=== PATIENT | female | born 1930 | race Caucasian/White ===

== ENCOUNTER 2016-11-23 20:10 | Emergency (ER) | payer MEDICARE, BC ==
--- NOTE | ~2016-11-23 | CR181 ---
[facility] A Service of [facility] & [facility] RADIOLOGY TEXT RESULTS PATIENT: SHAYY LUONG LOCATION: [facility] : 32 UNIT #: [id number] AGE: [address]: Dario Lindqiust MD SEX: F ORDER DR: [id number] [facility] [address] [place], [place] [address] [id number] E MR#: [id number] Acc #: [id number] NAME: SHAYY LUONG. : 1930 SEX: F STUDY DATE/TIME: 11/23/2016 20:41 UNIT: [facility] ROOM: STUDY DESCRIPTION: CR Lumbar Spine 2 or 3 Views Attending Physician: Dario Lindquist M.D. Ordering Physician: Dario Lindquist M.D. Primary Care Physician: Phan Olmos M.D. MEDICAL IMAGING REPORT This report is preliminary unless electronic signature is present Lumbar spine, 3 views. HISTORY Low back pain today after fall today. FINDINGS 3 views of the lumbar spine demonstrate degenerative disc disease and moderately severe degenerative disc space narrowing at L4-5 and L5-S1. Mild right lower lumbar curve. Mild chronic compression of the superior margin of L5 vertebral body, and mild chronic compression of the superior endplate of T12, stable compared to 10/29/16. IMPRESSION 1. No acute finding. 2. Degenerative disc disease and moderately severe degenerative disc space narrowing at L4-5 and L5-S1. 3. Xdve-zl-ayiwqwqk chronic compression fractures of the superior margins of L5 and T12 vertebral bodies. Dictated by... Taz Almonte M.D. THIS IS AN ELECTRONICALLY VERIFIED REPORT Taz Almonte M.D. at 11/23/2016 10:52 PM ANGEL/charbel TD: 11/23/2016 22:28 JOB #: [id number] MEDICAL IMAGING REPORT Page 1 of 1 COPY
--- NOTE | ~2016-11-23 | CR206 ---
[facility] A Service of [facility] & [facility] RADIOLOGY TEXT RESULTS PATIENT: SHAYY LUONG LOCATION: [facility] : 32 UNIT #: [id number] AGE: [address]: Dario Lindquist MD SEX: F ORDER DR: [id number] [facility] [address] [place], [place] [address] [id number] P MR#: [id number] Acc #: [id number] NAME: SHAYY LUONG : 1930 SEX: F STUDY DATE/TIME: 11/23/2016 20:38 UNIT: [facility] ROOM: STUDY DESCRIPTION: CR Pelvis 1 or 2 Views Attending Physician: Dario Lindquist M.D. Ordering Physician: Dario Lindquist M.D. Primary Care Physician: Phan Olmos M.D. MEDICAL IMAGING REPORT This report is preliminary unless electronic signature is present Frontal pelvis, 11/23/2016. INDICATIONS 86-year-old female with lower back and pelvic pain today, fell. History of surgery on the right femur; frontal pelvis was performed. COMPARISONS 03/01/10 FINDINGS The patient is status post fracture repair of the right hip. Compression screw and medullary miryam involve the right hip and right proximal femur. Extensive heterotopic bone formation on the right. No right hip fracture. The bones are osteopenic. There is a fracture deformity involving the superior pubic ramus on the left and the inferior pubic ramus on the left, both of which are suspicious for acute fracture deformities. The superior pubic ramus deformity is partially obscured by bowel gas. There are degenerative changes in the lumbar spine. IMPRESSION 1. Abnormal examination. Fracture deformities of the superior and inferior pubic rami on the left suspicious for acute fracture deformities as described. 2. Chronic heterotopic bone formation associated with a prior right hip fracture with surgical hardware as described above. 3. Degenerative change in the lumbar spine. STAT * RESULT Dictated by... Kenny Luna M.D. [facility] A Service of [facility] & [facility] RADIOLOGY TEXT RESULTS PATIENT: SHAYY LUONG LOCATION: [facility] #: [id number] : 32 UNIT #: [id number] AGE: [address]: Dario Lindquist MD SEX: F ORDER DR: THIS IS AN ELECTRONICALLY VERIFIED REPORT Kenny Luna M.D. at 11/23/2016 11:13 PM NAHUM/charbel TD: 11/23/2016 21:37 JOB #: [id number] MEDICAL IMAGING REPORT Page 1 of 1 COPY
--- NOTE | ~2016-11-23 | CR150 ---
[facility] A Service of [facility] & [facility] RADIOLOGY TEXT RESULTS PATIENT: SHAYY LUONG LOCATION: [facility] : 32 UNIT #: [id number] AGE: [address]: Dario Lindquist MD SEX: F ORDER DR: [id number] [facility] [address] [place], [place] [address] [id number] P MR#: [id number] Acc #: [id number] NAME: SHAYY LUONG : 1930 SEX: F STUDY DATE/TIME: 11/23/2016 20:39 UNIT: [facility] ROOM: STUDY DESCRIPTION: CR Hip Min 2 Views Lt Attending Physician: Dario Lindquist M.D. Ordering Physician: Dario Lindquist M.D. Primary Care Physician: Phan Olmos M.D. MEDICAL IMAGING REPORT This report is preliminary unless electronic signature is present 2 view left hip, 11/23/2016. INDICATION Trauma, fell, pain. Fell today. Surgery on the right femur in the past; 2 views left hip, no comparisons. FINDINGS The examination is abnormal. There are acute fracture deformities of the superior and inferior pubic rami on the left. Superior ramus fracture is partially obscured by bowel gas. No associated left hip fracture. There is mild degenerative change of the left hip. The bones are osteopenic. The patient is status post fracture repair of the right hip with heterotopic bone formation and compression screw and medullary miryam in place. Degenerative change in the lumbar spine. IMPRESSION 1. Abnormal examination demonstrating acute fractures of the superior and inferior pubic rami on the left. 2. Degenerative change of the left hip. 3. Fracture repair of the right hip with heterotopic bone formation and surgical hardware as described. STAT * RESULT Dictated by... Kenny Luna M.D. THIS IS AN ELECTRONICALLY VERIFIED REPORT Kenny Luna M.D. at 11/23/2016 11:13 PM JLY/jt TD: 11/23/2016 21:40 [facility] A Service of [facility] RADIOLOGY TEXT RESULTS PATIENT: SHAYY LUONG LOCATION: [facility] #: [id number] : 32 UNIT #: [id number] AGE: [address]: Dario Lindquist MD SEX: F ORDER DR: JOB #: [id number] MEDICAL IMAGING REPORT Page 1 of 1 COPY
[~2016-11-23 20:10] MED LIST: AMOXICILLIN500 M1 PO; CARBIDOPA-LEVO1 TAB PO; CARDIZEM LA360 MG PO; CENTRUM SILVER PO; DILTIAZEM 24HR360 M1 PO; ESTRACE0.5 MG PO; HYDROCHLOROTHIA25 MG PO; LEVOTHYROXINE25 MCG PO; LIPITOR40 MG PO; STOOL SOFTENER100 M1 PO; TUMS500 MG PO; VITAMIN D2000 UNI1 PO
[2016-11-23] MEDS ORDERED: PANTOPRAZOLE SO40 MG PO (21:51)
== END 2016-11-23 23:25 | disposition home or self-care (01) ==
LOC: CED 20:10
DX: S32.592A Other specified fracture of left pubis, initial encounter for closed fracture (principal); I10 Essential (primary) hypertension; G20 Parkinson's disease; Z88.2 Allergy status to sulfonamides; Z88.8 Allergy status to other drugs, medicaments and biological substances; Z79.899 Other long term (current) drug therapy; W01.0XXA Fall on same level from slipping, tripping and stumbling without subsequent striking against object, initial encounter; Y92.009 Unspecified place in unspecified non-institutional (private) residence as the place of occurrence of the external cause
CPT/HCPCS: 72100; 72170; 73502; 99284

== ENCOUNTER 2016-11-30 20:59 | Inpatient (IN) | payer MEDICARE, BC ==
--- NOTE | ~2016-11-30 | DS ---
Unit #: [id number] #: [id number] Patient: SHAYY LUONG [id number] [place], [place] [address] [id number] I MR#: [id number] NAME: SHAYY LUONG ROOM: [facility] Age: 86 Sex: F Admission Date: 11/30/2016 : 1930 Discharge Date: 12/03/2016 Attending Physician: Wilton Abreu M.D. Primary Care Physician: Phan Olmos M.D. DISCHARGE SUMMARY DISCHARGE DIAGNOSES 1. Hyponatremia. 2. Hypertension. 3. Left superior and inferior pubic rami fractures. 4. Parkinson disease. 5. Hypothyroidism. HOSPITAL COURSE The patient is an 86-year-old female who presented to [facility] secondary to pain and weakness. She had been noted recently to have a superior and inferior pubic rami fracture and was in increasing pain and unable to take care of herself at home. She had also developed some diffuse weakness and was noted to be significantly hyponatremic. The patient was admitted, started on normal saline and her hydrochlorothiazide was held. Her hyponatremia is much better at this time. She has been seen by physical and occupational therapies who recommend subacute rehab prior to discharge home. Given control of her pain and improvement in her hyponatremia, she is being discharged there now. DISCHARGE MEDICATIONS 1. Diltiazem ER 360 mg p.o. daily. 2. Lipitor 80 mg daily. 3. Carbidopa levodopa 25/100 one p.o. q.i.d. 4. Tramadol 50 mg p.o. q.i.d. 5. Pantoprazole 40 mg p.o. daily. 6. Levothyroxine 25 mcg p.o. daily. FOLLOWUP Patient is being discharged to rehab. She should follow up with her primary care provider upon discharge from that facility. Dictated by... Wilton Abreu M.D. Unit #: [id number] #: [id number] Patient: SHAYY LUONG ANDREW/kameron TD: 12/03/2016 17:01 JOB #: [id number] DISCHARGE SUMMARY Page 1 of 1 X Wilton Abreu MD DISCHARGE SUMMARY
--- NOTE | ~2016-11-30 | CT55 ---
[facility] A Service of [facility] RADIOLOGY TEXT RESULTS PATIENT: SHAYY LUONG LOCATION: [facility] 451[facility]01 : 32 UNIT #: [id number] AGE: [address]: Sadiq Elizondo MD SEX: F ORDER DR: [id number] [facility] [address] [place] [address] [place], [place] [address] [id number] I MR#: [id number] Acc #: [id number] NAME: SHAYY LUONG : 1930 SEX: F STUDY DATE/TIME: 12/01/2016 2:25 UNIT: [facility] ROOM: 03310 STUDY DESCRIPTION: CT Chest W Con Attending Physician: Castillo Garcia M.D. Ordering Physician: Pastor Collins M.D. Primary Care Physician: Phan Olmos M.D. MEDICAL IMAGING REPORT This report is preliminary unless electronic signature is present EXAM CT chest with contrast INDICATIONS Abnormal chest x-ray. Shortness of air today. PROCEDURE Contrast-enhanced CT of the chest. This CT exam was performed with one or more of the following radiation dose reduction techniques: automatic control, adjustment of mA and/or kV according to patient size, and iterative reconstruction. COMPARISON Portable chest on 11/30/2016 FINDINGS There is a linear opacity with volume loss in the right middle lobe. Otherwise no dense consolidation. No adenopathy. Hiatal hernia. No acute findings in the included upper abdomen. No aggressive appearing bone lesion. IMPRESSION Linear opacity with volume loss in the right middle lobe is most in keeping with atelectasis and likely explains the finding on the earlier chest radiograph. No other dense consolidation Dictated by... Kishan Vitale M.D. THIS IS AN ELECTRONICALLY VERIFIED REPORT Kishan Vitale M.D. at 12/01/2016 10:03 PM EED/rnr [facility] A Service of [facility] RADIOLOGY TEXT RESULTS PATIENT: SHAYY LUONG LOCATION: [facility] 451-01 : 32 UNIT #: [id number] AGE: [address]: Sadiq Elizondo MD SEX: F ORDER DR: TD: 12/01/2016 03:27 JOB #: [id number] MEDICAL IMAGING REPORT Page 1 of 1 COPY
--- NOTE | ~2016-11-30 | CO ---
Unit #: [id number] #: [id number] Patient: SHAYY LUONG [id number] [address] [place], [place] [address] [id number] I MR#: [id number] NAME: SHAYY LUONG. ROOM: [facility] Age: 86 Sex: F Admission Date: 11/30/2016 : 1930 Attending Physician: Wilton Abreu M.D. Primary Care Physician: Phan Olmos M.D. CONSULTATION REPORT We were asked to see her for right middle lobe atelectasis and also for positive D-dimer. HISTORY OF PRESENT ILLNESS Ms. Luong is an 86-year-old lady, who apparently fell and went to the ER on 11/23/2016. She had a pelvis x-ray that was consistent with a fracture of the superior and inferior pubic rami on the left, thought consistent with an acute fracture. She was actually sent home and was set up to see Dr. Cao, but she did not see Dr. Cao, she did not get a chance to see him yet. She came in for bilateral leg swelling. She really is not complaining of increased shortness of air. She denies increased cough. She denies fever or chills. She does not have night sweats. 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 She had pneumothorax therapy at that time and I believe it was her right lung. She says she was told she had "adhesions in her lung, but she was not sure where." She has had no sudden shortness of air. She did not smoke. PAST MEDICAL HISTORY Otherwise significant for TB as mentioned, history of Parkinson disease, history of vocal cord issues presumably because of Parkinson's, history of acid reflux, dyslipidemia, T12 compression fracture, recent pelvis fracture as mentioned, hypothyroidism, hypertension. PAST SURGICAL HISTORY Include hysterectomy, vocal cord repair, right femur fracture, bilateral cataract surgery, back surgery, pneumothorax therapy. MEDICATIONS On admission had included diltiazem 360 p.o. daily, hydrochlorothiazide 25 mg p.o. daily, Lipitor 80 mg p.o. daily, Synthroid 0.025 mg daily, carbidopa-levodopa 25-100 q.i.d., Protonix 40 mg p.o. daily, tramadol 50 mg p.o. q.i.d. ALLERGIES Sulfa which gives her rash and gabapentin. FAMILY HISTORY Negative for lung disease as far she knows. SOCIAL HISTORY She never smoked. SYSTEMS REVIEW Unit #: [id number] #: [id number] Patient: SHAYY LUONG She denies choking on food. She has hoarseness but she says it is chronic. She blames it on her Parkinson's. 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 History of esophageal strictures requiring dilatation in the past. All other systems are negative except as mentioned. She has been eating less since the fall. PHYSICAL EXAMINATION GENERAL: She presents as an elderly female, in no acute distress. VITAL SIGNS: Temperature is 97.6, pulse 77, respirations 16, blood pressure 151/66, saturation was 94% on room air. NECK: Without adenopathy. Evaluation of her lungs reveals that her breathing is not labored. LUNGS: Actually clear to auscultation. HEART: Regular. ABDOMEN: Soft, nontender. Bowel sounds present. EXTREMITIES: Presently without edema, but her legs are up in the bed. NEUROLOGIC: She is awake and alert. DIAGNOSTIC STUDIES IMAGING STUDIES: CT of the chest was viewed by me. I looked at it myself carefully looking for pulmonary emboli and I did not see any. I thought the dye penetration was good and even though this is not a PE protocol, I think we can pretty much exclude pulmonary embolism except for the very smallest vessels. She does have right middle lobe atelectasis and I thought there was a little bit of a patchy infiltrate in right lower lobe. I also thought there was upper lobe scarring on the left. In fact, the left upper lobe scarring was certainly more than the right and it is therefore possible that the pneumothorax therapy was done on the left and not on the right. LABORATORY RESULTS: Her serum chemistries significant for a sodium quite low 122, potassium 2.9, bicarb 31, and magnesium 1.5. Her D-dimer was 4320, which is significantly above the negative confidence level. White blood cell count was 7400, H and H was 11 and 31, 252,000 platelets. IMPRESSION 1. Right middle lobe atelectasis, etiology uncertain. 2. Left upper lobe scarring which is possible that is where the tuberculosis was. 3. History of old tuberculosis. As far as they know, she did not get isoniazid. 4. Elevated D-dimer, uncertain significance done after the CT with dye, but not a PE protocol. As mentioned, I think that there is very little chance of PE based on the CT itself. That is my interpretation. 5. Lower extremity swelling. 6. Hyponatremia. 7. Hypomagnesemia. 8. Hypokalemia. 9. History of tuberculosis. 10. Parkinson's. PLAN I would like bilateral lower extremity venous Dopplers. I see that she was placed on Lovenox 40 mg daily subcu and I think that is fine. I do not think we need to give her 1 mg/kg. I also see that she is on normal saline which is fine, although she may require Lasix a couple with normal saline. However, she has come up sore from her original sodium of 118, so Unit #: [id number] #: [id number] Patient: SHAYY LUONG I think that rate of rise is fine. As far as her atelectasis, I would like to give her incentive spirometry and have her use it every couple of hours while awake. Thank you very much for allowing me to participate in care of this patient. Dictated by... Shelley Howell/lakeshia TD: 12/02/2016 03:41 JOB #: [id number] CC: Sadiq Elizondo M.D. CONSULTATION REPORT Page 1 of 1 X Chito Noble MD X CONSULTATION REPORT
--- NOTE | ~2016-11-30 | US84 ---
[id number] [facility]. [facility] [address] [place], [place] [address] [id number] I MR#: [id number] Acc #: [id number] NAME: SHAYY LUONG : 1930 SEX: F STUDY DATE/TIME: 12/03/2016 11:19 UNIT: [facility] ROOM: [facility] STUDY DESCRIPTION: US LE Veins Complete Hadley Stdy Attending Physician: Wilton Abreu M.D. Ordering Physician: Sadiq Elizondo M.D. Primary Care Physician: Phan Olmos M.D. MEDICAL IMAGING REPORT This report is preliminary unless electronic signature is present EXAM Bilateral lower extremity venous Doppler HISTORY Lower extremity swelling FINDINGS The right common femoral vein, femoral vein, popliteal vein, tibial veins demonstrate patency and compressibility. There is phasic and spontaneous flow with respiration and augmentation. Proximal and distal greater saphenous vein is patent and compressible. Within the popliteal fossa, there is a simple fluid collection consistent with a cyst measuring 4.6 x 1.6 x. 3.8 cm. The left common femoral vein, femoral vein, popliteal vein, tibial veins demonstrate patency and compressibility. There is phasic and spontaneous flow with respiration and augmentation. Proximal and distal greater saphenous vein is patent and compressible. IMPRESSION 1. No evidence of either right or left lower extremity deep venous thrombosis. 2. A 4.6 cm right popliteal fossa cyst as described. Dictated by... Caryn Mason M.D. THIS IS AN ELECTRONICALLY VERIFIED REPORT Caryn Mason M.D. at 12/04/2016 11:00 AM FPN/to TD: 12/03/2016 15:31 JOB #: [id number] MEDICAL IMAGING REPORT Page 1 of 1 COPY
--- NOTE | ~2016-11-30 | EKG ---
PATIENT: SHAYY LUONG UNIT #: [id number] Ventricular Rate: 79 BPM Atrial Rate: 79 BPM P-R Interval: 198 ms QRS Duration: 68 ms Q-T Interval: 404 ms QTC Calculation(Bezet): 463 ms P [place]: 73 degrees Calculated R [place]: 41 degrees Calculated T [place]: 52 degrees Diagnosis Line: Normal sinus rhythm Diagnosis Line: Possible Left atrial enlargement Diagnosis Line: Septal infarct , age undetermined Diagnosis Line: Abnormal ECG Diagnosis Line: No previous ECGs available Diagnosis Line: Confirmed by HOLLY ARCOS MD ([id number]) on Diagnosis Line: 12/02/2016 9:38:18 PM INTERPRETING MD: JOSSELYN LARIOS
--- NOTE | ~2016-11-30 | HP ---
Unit #: [id number] #: [id number] Patient: SHAYY LUONG [id number] [place], [place] [address] [id number] I MR#: [id number] NAME: SHAYY LUONG. ROOM: [address] Age: 86 Sex: F Admission Date: 11/30/2016 : 1930 Attending Physician: Sadiq Elizondo M.D. Primary Care Physician: Phan Olmos M.D. HISTORY AND PHYSICAL CHIEF COMPLAINT Bilateral lower extremity swelling. DISCUSSION This is an 86-year-old female who has a past medical history of hypertension, dyslipidemia, hypothyroid, Parkinson disease, acid reflux, history of T12 compression fracture. She has had a recent visit to emergency room on 11/23/2016, at that time she was found to have left superior and inferior pubic rami fracture. She was sent home and she is coming back today with worsening lower extremity edema for the last five days. On workup, she was found to have a sodium of 118, potassium 3.5. Chest x-ray showed ill-defined density on the right lung base and immediately she had been admitted for hyponatremia. She denied chest pain. She denies nausea, vomiting, fever, chills, cough, or any other complaint. She is also complaining of some increased urinary frequency. PAST MEDICAL HISTORY 1. Hypertension. 2. Dyslipidemia. 3. Hypothyroid. 4. Parkinson disease. 5. GERD. 6. History of T12 compression fracture. 7. History of recent left superior inferior pubic rami fracture. PAST SURGICAL HISTORY 1. Hysterectomy. 2. History of vocal cord repair. 3. History of right femur fracture. 4. History of bilateral cataract surgery. 5. Back surgery. SOCIAL HISTORY She lives with her . She denies smoking. She denies other illicit drug use. ALLERGIES She is allergic to sulfa and gabapentin. MEDICATIONS FROM HOME Protonix 40 mg daily; tramadol 50 mg 4 times daily; Diltiazem 360 mg daily; hydrochlorothiazide 25 mg daily; Lipitor 80 mg daily; levothyroxine 25 mcg daily; carbidopa/levodopa 25/100 four times daily. Unit #: [id number] #: [id number] Patient: SHAYY LUONG REVIEW OF SYSTEMS CONSTITUTIONAL: She denies fever. She denied any recent illness. HEENT: No sore throat. No nasal congestion. CARDIOVASCULAR: No chest pain. No diaphoresis. No palpitations. GI: No nausea. No vomiting. No diarrhea. GENITOURINARY: She reported increased frequency but no dysuria. NEUROLOGIC: No headache. No dizziness. CARDIOVASCULAR: No chest pain. Increasing bilateral lower extremities. Swelling for the last five days. PHYSICAL EXAMINATION GENERAL: On examination, elderly female lying in the bed comfortably, currently not in any distress. She is alert, awake, oriented x4. Not in any distress. VITAL SIGNS: Temperature 97.6, heart rate 73, respiratory rate 18, blood pressure 157/62, oxygen is 93% on room air. HEENT: Head is atraumatic and normocephalic. Pupils equal, round, reactive to light and accommodation. NECK: Supple. No JVD. No thyromegaly. LUNGS: Clear to auscultation. No rhonchi. No wheezing. HEART: S1 and S2 regular rhythm. ABDOMEN: Soft, nontender, nondistended, bowel sounds positive. EXTREMITIES: Positive pedal edema up to the mid calf on both bilateral extremities, lower extremities. NEUROLOGIC: Alert and oriented x4. No focal neurologic deficits. Cranial nerves II-XII is intact. DIAGNOSTIC STUDIES LABORATORY STUDIES: Sodium 118, potassium 3.5, chloride 78, CO2 28, glucose 111, BUN 13, creatinine 0.6. UA negative. White count 9.7, hemoglobin 12, hematocrit 34, platelet 266. Troponin less than 0.05. IMAGING STUDIES: Chest x-ray shows ill-defined right lung base density. ASSESSMENT AND PLAN 1. Hyponatremia: Start the patient on IV fluid and normal saline, though she has bilateral lower extremity edema but lung sounds clear. Will monitor closely and will get also TSH. 2. Chronic chest x-ray show ill-defined opacity in the right lung base with hyponatremia. I will go ahead and do the CT chest with IV contrast. 3. Recent left superior and inferior pubic rami fracture. 4. Hypertension. 5. Dyslipidemia. 6. Hypothyroid. 7. Parkinson disease. 8. GERD. 9. History of T12 compression fracture with chronic back pain. 10. DVT prophylaxis, will place the patient on Lovenox. Dictated by Shelley Rowe/ts TD: 12/01/2016 11:15 Unit #: [id number] #: [id number] Patient: SHAYY LUONG JOB #: [id number] HISTORY AND PHYSICAL Page 1 of 1 X X HISTORY AND PHYSICAL
--- NOTE | ~2016-11-30 | CR72 ---
[facility] A Service of [facility] & [facility] RADIOLOGY TEXT RESULTS PATIENT: SHAYY LUONG LOCATION: [address] [address] : [birth year] UNIT #: [id number] AGE: [address]: Sadiq Elizondo MD SEX: F ORDER DR: [id number] [facility] [address] [place], [place] [address] [id number] E MR#: [id number] Acc #: [id number] NAME: SHAYY LUONG : 1930 SEX: F STUDY DATE/TIME: 11/30/2016 22:18 UNIT: [facility] ROOM: STUDY DESCRIPTION: CR Chest Single View Portable Attending Physician: Pastor Collins M.D. Ordering Physician: Pastor Collins M.D. Primary Care Physician: Phan Olmos M.D. MEDICAL IMAGING REPORT This report is preliminary unless electronic signature is present EXAM Portable chest INDICATIONS Shortness of air. Bilateral leg swelling today. PROCEDURE Frontal view chest COMPARISON 12/22/2014 FINDINGS Heart size unchanged. COPD change with chronic parenchymal coarsening. There is possibly subtle ill-defined opacity in the right lower lung zone. No pleural fluid or pneumothorax. IMPRESSION 1. Background chronic changes. 2. Possible ill-defined opacity in the right lung base. Dictated by... Kishan Vitale M.D. THIS IS AN ELECTRONICALLY VERIFIED REPORT Kishan Vitale M.D. at 12/01/2016 10:05 PM AGNES/chapincito TD: 12/01/2016 00:13 JOB #: [id number] MEDICAL IMAGING REPORT Page 1 of 1 COPY
--- NOTE | ~2016-11-30 | CR72 ---
[facility] A Service of [facility] & [facility] RADIOLOGY TEXT RESULTS PATIENT: SHAYY LUONG LOCATION: [place] [address]- : 34 UNIT #: [id number] AGE: [address]: Wilton Abreu MD SEX: F ORDER DR: [id number] [facility] [address] [place], [place] [address] [id number] MR#: [id number] Acc #: [id number] NAME: SHAYY LUONG : 1930 SEX: F STUDY DATE/TIME: 12/03/2016 6:38 UNIT: [facility] ROOM: [facility] STUDY DESCRIPTION: CR Chest Single View Portable Attending Physician: Wilton Abreu M.D. Ordering Physician: Suze Melvin M.D. Primary Care Physician: Phan Olmos M.D. MEDICAL IMAGING REPORT This report is preliminary unless electronic signature is present EXAM Portable chest INDICATION Follow up atelectasis. FINDINGS Today's portable view of the chest shows no change from yesterday's exam. The lungs are clear. Heart size and vascularity are normal. The bones are unremarkable. Dictated by... Luis Fernando Cardozo M.D. THIS IS AN ELECTRONICALLY VERIFIED REPORT Luis Fernando Cardozo M.D. at 12/03/2016 10:25 AM LC/mikey TD: 12/03/2016 09:30 JOB #: [id number] MEDICAL IMAGING REPORT Page 1 of 1 COPY
[~2016-11-30 20:59] MED LIST changes: +PANTOPRAZOLE SO40 MG PO
[2016-11-30 22:06] LABS: POC - TROPONIN <0.05 ng/mL (<=0.05)
[2016-11-30 22:08] LABS: BASOPHIL% 0.2 % (0-2.5); DIFF IND NO; EOSINOPHIL# 0.1 X10e3 (0-0.7); EOSINOPHIL% 0.6 % (0.0-7.0); HEMATOCRIT 34.2 % (35.0-45.0); HEMOGLOBIN 12.1 gm/dL (12.0-16.0); LYMPHOCYTE# 1.1 X10e3 (1.0-3.5); LYMPHOCYTE% 11.3 % (17.0-45.0); MEAN CELL VOLUME 83.8 FL (83-96); MEAN CORPUSCULAR HEMOGLOBIN 29.7 PG (28-34); MEAN CORPUSCULAR HGB CONC 35.4 g/dL (30-36); MEAN PLATELET VOLUME 6.1 FL (6.5-11.5); MONOCYTE# 0.9 X10e3 (0-1.0); MONOCYTE% 9.4 % (3.0-12.0); NEUTROPHIL# 7.6 X10e3 (1.5-7.1); NEUTROPHIL% 78.5 % (40-75); PLATELET COUNT 266 X10e3 (140-420); RED BLOOD COUNT 4.08 X10e (3.90-5.30); RED CELL DISTRIBUTION WIDTH 14.6 % (11.0-15.5); WHITE BLOOD COUNT 9.7 X10e3 (4.0-10.5)
[2016-11-30 22:26] LABS: BUN/CREATININE RATIO 21.66; CALCIUM SERUM 8.9 mg/dL (8.4-10.2); CREATININE SERUM 0.6 mg/dL (0.6-1.4); GLOM FILT RATE Estimated 83.7 mL/min (>60); POTASSIUM 3.5 mmol/L (3.5-5.1)
[2016-11-30 22:30] LABS: URINE SOURCE CATH
[2016-11-30 22:46] LABS: URINE APPEARANCE CLEAR; URINE BILIRUBIN NEG (NEG); URINE BLOOD NEG (NEG); URINE COLOR YELLOW; URINE GLUCOSE NEG (NEG); URINE KETONE NEG (NEG); URINE LEUKOCYTE ESTERASE TRACE (NEG); URINE NITRATE NEG (NEG); URINE PH 7.5 (5-8); URINE PROTEIN NEG (NEG); URINE SPECIFIC GRAVITY 1.011 (1.003-1.035)
[2016-11-30 22:49] LABS: U HYALINE CASTS AUWI 0-2 /[LPF]; URBCS1 AUWI 0-2 /[HPF] (0-2); URINE BACTERIA AUWI NEG (NEGATIVE); URINE SQUAMOUS EPITHELIAL CELL FEW /[HPF]
[2016-11-30 22:51] LABS: CULTURE INDICATED? NO
[2016-11-30] MEDS ORDERED: TRAMADOL HCL50 M1 PO (23:01)
[2016-12-01 08:24] LABS: BASOPHIL% 0.4 % (0-2.5); DIFF IND YES; EOSINOPHIL# 0.1 X10e3 (0-0.7); EOSINOPHIL% 1.2 % (0.0-7.0); LYMPHOCYTE% 13.7 % (17.0-45.0); MEAN CELL VOLUME 83.9 FL (83-96); MEAN CORPUSCULAR HEMOGLOBIN 29.9 PG (28-34); MEAN CORPUSCULAR HGB CONC 35.6 g/dL (30-36); MONOCYTE# 0.8 X10e3 (0-1.0); MONOCYTE% 11.1 % (3.0-12.0); NEUTROPHIL# 5.5 X10e3 (1.5-7.1); NEUTROPHIL% 73.6 % (40-75); PLATELET COUNT 252 X10e3 (140-420); RED BLOOD COUNT 3.69 X10e (3.90-5.30); RED CELL DISTRIBUTION WIDTH 14.9 % (11.0-15.5); WHITE BLOOD COUNT 7.4 X10e3 (4.0-10.5)
[2016-12-01 08:39] LABS: PLATELET ESTIMATE NORMAL (NORMAL); RBC NORMAL YES
[2016-12-01 08:53] LABS: BUN/CREATININE RATIO 11.25; CALCIUM SERUM 8.6 mg/dL (8.4-10.2); CREATININE SERUM 0.8 mg/dL (0.6-1.4); GLOM FILT RATE Estimated 67.8 mL/min (>60); MAGNESIUM 1.5 mg/dL (1.6-3.0)
[2016-12-01 08:55] LABS: POTASSIUM 2.9 mmol/L (3.5-5.1)
[2016-12-02 03:54] LABS: HEMOGLOBIN 11.6 gm/dL (12.0-16.0); MEAN CORPUSCULAR HEMOGLOBIN 29.8 PG (28-34); MEAN PLATELET VOLUME 6.1 FL (6.5-11.5); RED BLOOD COUNT 3.88 X10e (3.90-5.30); RED CELL DISTRIBUTION WIDTH 14.9 % (11.0-15.5); WHITE BLOOD COUNT 7.6 X10e3 (4.0-10.5)
[2016-12-02 04:22] LABS: BUN/CREATININE RATIO 15.71; CALCIUM SERUM 8.5 mg/dL (8.4-10.2); CREATININE SERUM 0.7 mg/dL (0.6-1.4); GLOM FILT RATE Estimated 79.6 mL/min (>60); POTASSIUM 3.2 mmol/L (3.5-5.1)
== END 2016-12-03 21:24 | DRG 641 ==
LOC: CED 20:59 → CEDOF 23:45 → CED 23:59 → CEDOF 12-01 07:22 → C4B 12-01 15:08 → CEDOF 12-01 15:08 → C4B 12-01 15:08
PROVIDERS: Emergency Medicine; Family Medicine
PROC: B24BYZZ Ultrasonography of Heart with Aorta using Other Contrast (ICD-10-PCS; principal; 2016-12-01)
DX: E87.1 Hypo-osmolality and hyponatremia (principal); G20 Parkinson's disease; J98.11 Atelectasis; I10 Essential (primary) hypertension; E03.9 Hypothyroidism, unspecified; Z90.710 Acquired absence of both cervix and uterus; Z98.42 Cataract extraction status, left eye; Z98.41 Cataract extraction status, right eye; E78.5 Hyperlipidemia, unspecified; Z88.2 Allergy status to sulfonamides; E83.42 Hypomagnesemia; Z86.11 Personal history of tuberculosis; M79.89 Other specified soft tissue disorders; S32.592D Other specified fracture of left pubis, subsequent encounter for fracture with routine healing; K21.9 Gastro-esophageal reflux disease without esophagitis; E87.6 Hypokalemia
CPT/HCPCS: 36415; 51701; 71010; 71260; 80048; 81003; 82553; 83735; 84443; 84484; 85025; 85027; 85379; 93005; 93306; 93970; 94640; 94760; 97116; 97162; 97165; 97530; 99285; G8978-GP; G8979-GP; G8987-GO; G8988-GO; J1650; Q9967